=== PATIENT | female | born 1990 ===

== ENCOUNTER 2019-08-10 04:19 | Inpatient (IN) | payer OTHER ==
[2019-08-10] MEDS ORDERED: Nalbuphine 10 MG/1 ML Vial IVPUSH PRN (13:14)
[2019-08-10] MEDS ORDERED: Lidocaine 1% 50 ML MDV INJECT PRN (13:14)
[2019-08-10] MEDS ORDERED: Misoprostol 200 MCG Tab PO PRN (13:14)
[2019-08-10] MEDS ORDERED: Sodium Chloride 0.9% 10 ML Syringe FLUSH PRN (13:14)
[2019-08-10] MEDS ORDERED: Carboprost Tromethamine 250 MCG/1 ML Amp IM PRN (13:14)
[2019-08-10] MEDS ORDERED: Terbutaline 1 MG/ML SDV SUBCUT PRN (13:14)
[2019-08-10] MEDS ORDERED: Sodium Chloride 0.9% 2.5 ML Syringe FLUSH PRN (13:14)
[2019-08-10] MEDS ORDERED: Methylergonovine 0.2 MG/1 ML Amp IM PRN (13:14)
[2019-08-10] MEDS ORDERED: Tranexamic Acid 1,000 MG in Sodium Chloride 0.9% 100 ML IV PRN (13:14)
[2019-08-10] MEDS ORDERED: Water For Irrigation,Sterile 1,000 ML Container IRR PRN (13:14)
[2019-08-10] MEDS ORDERED: Ondansetron 4 MG/2 ML SDV IVPUSH PRN (13:14)
[2019-08-10] MEDS ORDERED: Sodium Chloride 0.9% 10 ML SDV IV PRN (13:14)
[2019-08-10] MEDS ORDERED: Misoprostol 25 MCG (1/4 of 100 MCG) Tab VAG PRN (13:14)
[2019-08-10] MEDS ORDERED: Oxytocin/0.9 % Sodium Chloride 30 UNIT/500 ML BAG IV SCH ×2 (13:15)
[2019-08-10] MEDS ORDERED: Misoprostol 25 MCG (1/4 of 100 MCG) Tab PO ONE ×2 (13:25→13:59)
--- NOTE | 2019-08-10 13:59 | PCM.LDHP ---
L&D History of Present Illness - General Date of Service: 08/10/19 Admit Problem/Dx: Patient Status Order with Admit Dx/Problem 08/10/19 13:15 Patient Status [ADT] Routine Admission Diagnosis/Problem Admission Diagnosis/Problem Source of Information: Patient History Limitations: Reports: No Limitations - History of Present Illness Improves with: Reports: None Worsens with: Reports: None Associated Symptoms: Reports: N - Related Data Allergies/Adverse Reactions: Allergies Allergy/AdvReac Type Severity Reaction Status Date / Time No Known Allergies Allergy Verified 05/26/18 19:30 Home Medications: Home Meds Atenolol [Tenormin] 1 tab PO DAILY 07/25/19 [History] Past Medical History HEENT History: Reports: None Cardiovascular History: Reports: Hypertension Respiratory History: Reports: None Gastrointestinal History: Reports: None Genitourinary History: Reports: None 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 Musculoskeletal History: Reports: None Neurological History: Reports: None Psychiatric History: Reports: None Endocrine/Metabolic History: Reports: None Dermatologic History: Reports: None - Infectious Disease History Infectious Disease History: Reports: None Social & Family History - Family History Family Medical History: Noncontributory H&P Review of Systems - Review of Systems: Review Of Systems: See Below General: Reports: No Symptoms HEENT: Reports: No Symptoms Pulmonary: Reports: No Symptoms Cardiovascular: Reports: No Symptoms Gastrointestinal: Reports: No Symptoms Genitourinary: Reports: No Symptoms Musculoskeletal: Reports: No Symptoms Skin: Reports: No Symptoms Psychiatric: Reports: No Symptoms Neurological: Reports: No Symptoms Hematologic/Lymphatic: Reports: No Symptoms Immunologic: Reports: No Symptoms L&D Exam - Exam Exam: See Below - Vital Signs Weight: 68.492 kg - OB Specific Contraction Intensity: Mild Movement: Active Heart Tones: Present Presentation: Vertex - Jenkins Score Jenkins Score Cervix Position: Anterior Jenkins Score Consistency: Soft Jenkins Score Dilation: Closed Jenkins Score Infant's Station: -3 - Exam General: Alert, Oriented HEENT: PERRLA, Conjunctiva Clear, EACs Clear, EOMI, Hearing Intact, Mucosa Moist & [place], Nares Patent, Normal Nasal Septum, Posterior Pharynx Clear, TMs Clear Neck: Supple, Trachea Midline Lungs: Clear to Auscultation, Normal Respiratory Effort Cardiovascular: Regular Rate, Regular Rhythm GI/Abdominal Exam: Normal Bowel Sounds, Soft, Non-Tender, No Organomegaly, No Distention, No Abnormal Bruit, No Mass, Pelvis Stable Rectal Exam: Normal Exam, Normal Rectal Tone Genitourinary: Normal external exam, Normal bimanual exam, Normal speculum exam Back Exam: Normal Inspection, Full Range of Motion Extremities: Normal Inspection, Normal Range of Motion, Non-Tender, No Pedal Edema, Normal Capillary Refill Skin: Warm, Dry, Intact Neurological: Cranial Nerves Intact, Reflexes Equal Bilateral Psychiatric: Alert, Normal Affect, Normal Mood - Patient Data Lab Results Last 24 hrs: Laboratory Results - last 24 hr 08/10/19 Range/Units 13:40 WBC 9.62 (4.0-11.0) K/uL RBC 3.93 L (4.30-5.90) M/uL Hgb 11.8 L (12.0-16.0) g/dL Hct 35.2 L (36.0-46.0) % MCV 89.6 (80.0-98.0) fL MCH 30.0 (27.0-32.0) pg MCHC 33.5 (31.0-37.0) g/dL RDW Std Deviation 41.7 (28.0-62.0) fl RDW Coeff of Boubacar 13 (11.0-15.0) % Plt Count 226 (150-400) K/uL MPV 10.50 (7.40-12.00) fL Nucleated RBC % 0.0 /100WBC Nucleated RBCs # 0 K/uL Result Diagrams: 08/10/19 13:40 Problem List Initiated/Reviewed/Updated: Yes Orders Last 24hrs: Active Orders 24 hr Category Date Time Status Patient Status [ADT] Routine ADT 08/10/19 13:15 Active Communication Order [RC] ASDIRECTED Care 08/10/19 13:15 Active Communication Order [RC] ASDIRECTED Care 08/10/19 13:15 Active Communication Order [RC] ASDIRECTED Care 08/10/19 13:15 Active Heart Tones [RC] CONTINUOUS Care 08/10/19 13:15 Active Non Stress Test [RC] PER UNIT ROUTINE Care 08/10/19 13:15 Active May Shower [RC] ASDIRECTED Care 08/10/19 13:15 Active Notify Provider [RC] PRN Care 08/10/19 13:15 Active Notify Provider [RC] PRN Care 08/10/19 13:15 Active Notify Provider [RC] PRN Care 08/10/19 13:15 Active Notify Provider [RC] STAT Care 08/10/19 13:15 Active Oxygen Therapy [RC] ASDIRECTED Care 08/10/19 13:15 Active Up ad Chikis [RC] ASDIRECTED Care 08/10/19 13:15 Active Vaginal Exam [RC] PRN Care 08/10/19 13:15 Active Vaginal Exam [RC] PRN Care 08/10/19 13:15 Active Vital Signs [RC] PER UNIT ROUTINE Care 08/10/19 13:15 Active RAPID PLASMA REAGIN, QUANT [REF] Routine Lab 08/10/19 13:40 Received TYPE AND SCREEN [BBK] Routine Lab 08/10/19 13:40 Received Butorphanol [Stadol] Med 08/10/19 13:14 Active 1 mg IVPUSH Q1H PRN Carboprost Tromethamine [Hemabate DS] Med 08/10/19 13:14 Active 250 mcg IM ASDIRECTED PRN Lactated Ringers [Ringers, Lactated] 1,000 ml Med 08/10/19 13:15 Active IV ASDIRECTED Lidocaine 1% [Xylocaine 1%] Med 08/10/19 13:14 Active 50 ml INJECT ONETIME PRN Methylergonovine [Methergine] Med 08/10/19 13:14 Active 0.2 mg IM ASDIRECTED PRN Nalbuphine [Nubain] Med 08/10/19 13:14 Active 10 mg IVPUSH Q1H PRN Ondansetron [Zofran] Med 08/10/19 13:14 Active 4 mg IVPUSH Q4H PRN Oxytocin/0.9 % Sodium Chloride [Oxytocin 30 Unit/500 ML Med 08/10/19 13:15 Active -NS] 30 unit in 500 ml IV TITRATE Oxytocin/0.9 % Sodium Chloride [Oxytocin 30 Unit/500 ML Med 08/10/19 13:15 Active -NS] 30 unit in 500 ml IV TITRATE Sodium Chloride 0.9% [Normal Saline] Med 08/10/19 13:14 Active 10 ml IV ASDIRECTED PRN Sodium Chloride 0.9% [Saline Flush] Med 08/10/19 13:14 Active 10 ml FLUSH ASDIRECTED PRN Sodium Chloride 0.9% [Saline Flush] Med 08/10/19 13:14 Active 2.5 ml FLUSH ASDIRECTED PRN Terbutaline [Brethine] Med 08/10/19 13:14 Active 0.25 mg SUBCUT ASDIRECTED PRN Tranexamic Acid [Cyklokapron] 1,000 mg Med 08/10/19 13:14 Active Sodium Chloride 0.9% [Normal Saline] 100 ml IV ONETIME Water For Irrigation,Sterile [Sterile Water for Med 08/10/19 13:14 Active Irrigation] 1,000 ml IRR ASDIRECTED PRN miSOPROStoL [Cytotec] Med 08/10/19 13:14 Active 200 mcg PO ONETIME PRN miSOPROStoL [Cytotec] Med 08/10/19 13:30 Active 25 mcg PO Q4H miSOPROStoL [Cytotec] Med 08/10/19 13:14 Active 25 mcg VAG ONETIME PRN miSOPROStoL [Cytotec] Med 08/10/19 13:14 Active 25 mcg VAG Q4H PRN Scalp Electrode [WOMSER] Per Unit Routine Oth 08/10/19 13:15 Ordered Medication Administration Instruction [OM.PC] Q3H Oth 08/10/19 13:15 Ordered Peripheral IV Insertion Adult [OM.PC] Routine Oth 08/10/19 13:15 Ordered Resuscitation Status Routine Resus Stat 08/10/19 13:14 Ordered Medication Orders Butorphanol Tartrate (Stadol) 1 mg IVPUSH Q1H PRN PRN Reason: Pain Carboprost Tromethamine (Hemabate Ds) 250 mcg IM ASDIRECTED PRN PRN Reason: Post Hemorrhage Lactated Ringer's (Ringers, Lactated) 1,000 mls @ 150 mls/hr IV ASDIRECTED REBECCA Oxytocin/Sodium Chloride (Oxytocin 30 Unit/500 Ml-Ns) 30 unit in 500 mls @ 999 mls/hr IV TITRATE REBECCA Oxytocin/Sodium Chloride (Oxytocin 30 Unit/500 Ml-Ns) 30 unit in 500 mls @ 2 mls/hr IV TITRATE REBECCA; Protocol Tranexamic Acid 1,000 mg/ (Sodium Chloride) 110 mls @ 660 mls/hr IV ONETIME PRN PRN Reason: Bleeding Lidocaine HCl (Xylocaine 1%) 50 ml INJECT ONETIME PRN PRN Reason: Laceration repair Methylergonovine Maleate (Methergine) 0.2 mg IM ASDIRECTED PRN PRN Reason: Post Hemorrhage Misoprostol (Cytotec) 200 mcg PO ONETIME PRN PRN Reason: Post Hemorrhage Misoprostol (Cytotec) 25 mcg VAG ONETIME PRN PRN Reason: Cervical Ripening Misoprostol (Cytotec) 25 mcg VAG Q4H PRN PRN Reason: Cervical Ripening Misoprostol (Cytotec) 25 mcg PO Q4H REBECCA Nalbuphine HCl (Nubain) 10 mg IVPUSH Q1H PRN PRN Reason: Pain (severe 7-10) Ondansetron HCl (Zofran) 4 mg IVPUSH Q4H PRN PRN Reason: Nausea/Vomiting Sodium Chloride (Saline Flush) 10 ml FLUSH ASDIRECTED PRN PRN Reason: Keep Vein Open Sodium Chloride (Saline Flush) 2.5 ml FLUSH ASDIRECTED PRN PRN Reason: Keep Vein Open Sodium Chloride (Normal Saline) 10 ml IV ASDIRECTED PRN PRN Reason: IV Use Sterile Water (Sterile Water For Irrigation) 1,000 ml IRR ASDIRECTED PRN PRN Reason: delivery Terbutaline Sulfate (Brethine) 0.25 mg SUBCUT ASDIRECTED PRN PRN Reason: Tacysystole Assessment/Plan Comment:: Term admitted for elective induction.
[2019-08-10] MEDS: Lactated Ringers 1,000 ML IV SCH (17:45)
[2019-08-10] MEDS: Misoprostol 25 MCG (1/4 of 100 MCG) Tab VAG PRN ×2 (18:27→22:33)
[2019-08-10] MEDS: Misoprostol 25 MCG (1/4 of 100 MCG) Tab PO SCH ×2 (18:28→22:33)
[2019-08-10] MEDS: Butorphanol 1 MG/ML SDV IVPUSH PRN (22:38)
[2019-08-11] MEDS: Butorphanol 1 MG/ML SDV IVPUSH PRN (02:50)
[2019-08-11] MEDS ORDERED: fentaNYL 100 MCG/2 ML SDV ONE (03:24)
[2019-08-11] MEDS ORDERED: Ropivacaine HCl/PF 100 ML ONE (03:25)
[2019-08-11] MEDS ORDERED: Ropivacaine 0.2% PF 2 MG/ML 20 ML SDV ONE (03:25)
[2019-08-11] MEDS: Lactated Ringers 1,000 ML IV SCH (03:55)
[2019-08-11] MEDS: Misoprostol 25 MCG (1/4 of 100 MCG) Tab PO SCH (03:57)
[2019-08-11] MEDS ORDERED: Bupivacaine 0.5% 30 ML SDV ONE (04:03)
[2019-08-11] MEDS ORDERED: oxyCODONE 5 MG Tab PO PRN (04:27)
[2019-08-11] MEDS ORDERED: Ibuprofen 400 MG Tab PO PRN (04:27)
[2019-08-11] MEDS ORDERED: Lanolin 100% Cream 7 GM Tube TOP PRN (04:27)
[2019-08-11] MEDS ORDERED: Docusate Sodium 100 MG Cap PO PRN (04:27)
[2019-08-11] MEDS ORDERED: Witch Hazel Medicated Pads 40/Jar TOP PRN (04:27)
[2019-08-11] MEDS ORDERED: Bisacodyl 10 MG Supp RECTAL PRN (04:27)
[2019-08-11] MEDS ORDERED: Benzocaine/Menthol 20%-0.5% Spray 78 GM Cannister TOP PRN (04:27)
[2019-08-11] MEDS ORDERED: Acetaminophen 500 MG Tab PO PRN ×2 (04:27)
--- NOTE | 2019-08-11 04:29 | PCM.PREANE ---
Preanesthetic Assessment - Procedure Proposed Procedure: Labor epidural - Anesthesia/Transfusion/Family Hx Anesthesia History: Prior Anesthesia Without Reaction Family History of Anesthesia Reaction: No Transfusion History: No Prior Transfusion(s) Intubation History: Unknown - Review of Systems General: No Symptoms Pulmonary: No Symptoms Cardiovascular: No Symptoms Gastrointestinal: No Symptoms Neurological: No Symptoms Other: Reports: None - Physical Assessment NPO Status Date: 08/11/19 NPO Status Time: 04:26 (liquids) Vital Signs: 140/73 100 20 SaO2 99% Active labor. 3-4cm last check. Height: 1.63 m Weight: 68.492 kg ASA Class: 2 Mental Status: Alert & Oriented x3 Airway Class: Mallampati = 1 Dentition: Reports: Normal Dentition Thyro-Mental Finger Breadths: 3 Mouth Opening Finger Breadths: 3 ROM/Head Extension: Full Lungs: Clear to Auscultation Cardiovascular: Regular Rate (Acceptable for VAZQUEZ. Discussed. Permit signed.) - Lab Values: Laboratory Last Values WBC 9.62 K/uL (4.0-11.0) 08/10/19 13:40 RBC 3.93 M/uL (4.30-5.90) L 08/10/19 13:40 Hgb 11.8 g/dL (12.0-16.0) L 08/10/19 13:40 Hct 35.2 % (36.0-46.0) L 08/10/19 13:40 MCV 89.6 fL (80.0-98.0) 08/10/19 13:40 MCH 30.0 pg (27.0-32.0) 08/10/19 13:40 MCHC 33.5 g/dL (31.0-37.0) 08/10/19 13:40 RDW Std Deviation 41.7 fl (28.0-62.0) 08/10/19 13:40 RDW Coeff of Boubacar 13 % (11.0-15.0) 08/10/19 13:40 Plt Count 226 K/uL (150-400) 08/10/19 13:40 MPV 10.50 fL (7.40-12.00) 08/10/19 13:40 Nucleated RBC % 0.0 /100WBC 08/10/19 13:40 Nucleated RBCs # 0 K/uL 08/10/19 13:40 Blood Type B POSITIVE 08/10/19 13:40 Antibody Screen NEGATIVE 08/10/19 13:40 - Allergies Allergies/Adverse Reactions: Allergies Allergy/AdvReac Type Severity Reaction Status Date / Time No Known Allergies Allergy Verified 05/26/18 19:30 PreAnesthesia Questionnaire HEENT History: Reports: None Cardiovascular History: Reports: Hypertension Other Cardiovascular History: Chronic since 2016 Respiratory History: Reports: None Gastrointestinal History: Reports: None Genitourinary History: Reports: None 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 History: Reports: None Neurological History: Reports: None Psychiatric History: Reports: None Endocrine/Metabolic History: Reports: None Dermatologic History: Reports: None - Infectious Disease History Infectious Disease History: Reports: Chicken Pox - Past Surgical History HEENT Surgical History: Reports: Oral Surgery Other HEENT Surgeries/Procedures: 2012: wisdom teeth Cardiovascular Surgical History: Reports: None - SUBSTANCE USE Smoking Status *Q: Never Smoker Second Hand Smoke Exposure: No Recreational Drug Use History: No - HOME MEDS Home Medications: Home Meds Atenolol [Tenormin] 1 tab PO DAILY 07/25/19 [History] - CURRENT (IN HOUSE) MEDS Current Meds: Current Medications Butorphanol Tartrate (Stadol) 1 mg IVPUSH Q1H PRN PRN Reason: Pain Last Admin: 08/11/19 02:50 Dose: 1 mg Carboprost Tromethamine (Hemabate Ds) 250 mcg IM ASDIRECTED PRN PRN Reason: Post Hemorrhage Lactated Ringer's (Ringers, Lactated) 1,000 mls @ 150 mls/hr IV ASDIRECTED REBECCA Last Admin: 08/11/19 03:55 Dose: 150 mls/hr Oxytocin/Sodium Chloride (Oxytocin 30 Unit/500 Ml-Ns) 30 unit in 500 mls @ 999 mls/hr IV TITRATE REBECCA Last Admin: 08/11/19 04:21 Dose: 999 mls/hr Oxytocin/Sodium Chloride (Oxytocin 30 Unit/500 Ml-Ns) 30 unit in 500 mls @ 2 mls/hr IV TITRATE REBECCA; Protocol Tranexamic Acid 1,000 mg/ (Sodium Chloride) 110 mls @ 660 mls/hr IV ONETIME PRN PRN Reason: Bleeding Lidocaine HCl (Xylocaine 1%) 50 ml INJECT ONETIME PRN PRN Reason: Laceration repair Methylergonovine Maleate (Methergine) 0.2 mg IM ASDIRECTED PRN PRN Reason: Post Hemorrhage Misoprostol (Cytotec) 200 mcg PO ONETIME PRN PRN Reason: Post Hemorrhage Misoprostol (Cytotec) 25 mcg VAG ONETIME PRN PRN Reason: Cervical Ripening Last Admin: 08/10/19 14:03 Dose: 25 mcg Misoprostol (Cytotec) 25 mcg VAG Q4H PRN PRN Reason: Cervical Ripening Last Admin: 08/10/19 22:33 Dose: 25 mcg Misoprostol (Cytotec) 25 mcg PO Q4H REBECCA Last Admin: 08/11/19 03:57 Dose: Not Given Nalbuphine HCl (Nubain) 10 mg IVPUSH Q1H PRN PRN Reason: Pain (severe 7-10) Ondansetron HCl (Zofran) 4 mg IVPUSH Q4H PRN PRN Reason: Nausea/Vomiting Sodium Chloride (Saline Flush) 10 ml FLUSH ASDIRECTED PRN PRN Reason: Keep Vein Open Sodium Chloride (Saline Flush) 2.5 ml FLUSH ASDIRECTED PRN PRN Reason: Keep Vein Open Sodium Chloride (Normal Saline) 10 ml IV ASDIRECTED PRN PRN Reason: IV Use Sterile Water (Sterile Water For Irrigation) 1,000 ml IRR ASDIRECTED PRN PRN Reason: delivery Terbutaline Sulfate (Brethine) 0.25 mg SUBCUT ASDIRECTED PRN PRN Reason: Tacysystole Discontinued Medications Bupivacaine HCl (Marcaine 0.5%) Confirm Administered Dose 30 ml .ROUTE .STK-MED ONE Stop: 08/11/19 04:04 Fentanyl (Sublimaze) Confirm Administered Dose 100 mcg .ROUTE .STK-MED ONE Stop: 08/11/19 03:25 Ropivacaine (Naropin 0.2%) Confirm Administered Dose 100 mls @ as directed .ROUTE .STK-MED ONE Stop: 08/11/19 03:26 Misoprostol (Cytotec) 25 mcg PO ONETIME ONE Stop: 08/10/19 13:26 Misoprostol (Cytotec) 25 mcg PO ONETIME ONE Stop: 08/10/19 14:00 Last Admin: 08/10/19 14:33 Dose: 25 mcg Ropivacaine (Naropin 0.2%) Confirm Administered Dose 20 ml .ROUTE .[facility] ONE Stop: 08/11/19 03:26
--- NOTE | 2019-08-11 04:44 | PCM.PRNOTE ---
- Free Text/Narrative Note: Requested VAZQUEZ. , active labor on Pitocin. Discussed, ? answered, permit signed. Fluid bolus in. 03:32 Prep with Chloroprep 03:35 Skin local 4 ml 1% Lidocaine @ L3-4 03:37 Space ID'd via a SRINIVASA with air/saline. Reconfirmed with saline. 03:38 Cath to 8 cm without issues. 03:40 Test dose with 4ml 1.5% lido with 1:200k epi added. Negative aspiration, negative test. 03:47-54 Bolus with 8ml 0.2% Naropin + 100mcg Fentanyl added. 03:58 Legs heavy, contractions still noticeable. 04:00 Pain/pressure present, checked complete. Very uncomfortable 04:02 Marcaine 0.5% 4ml given, negative aspiration. 04:05 Pressure/discomfort <. Delivered 04:19 Tolerated well.
--- NOTE | 2019-08-11 10:00 | OR ---
SURGEON: Carlitos Soria MD DATE OF PROCEDURE: Ms. King is a 28-year-old. She is para 2-0-0-2, both of them by normal spontaneous vaginal delivery. She is followed in our practice, and she had no complication. Her GBS status was negative. She is admitted for elective induction. She is 39 plus weeks. She is induced with Cytotec. She responded to that very well initially slowly. At the time of the admission, she was 1 to 2 cm, 50 vertex, and -3 and she progressed slowly to 4 cm and once she got into 4, she rather entered the active phase and progressed rapidly. At 6 cm, she had epidural anesthesia for labor analgesia, and she became complete, and she was able to accomplish normal spontaneous vaginal delivery over intact perineum. There was no vaginal or labial laceration. The placenta delivered spontaneous, complete, and intact without any problem. There was 1 nuchal cord and fetus, cried immediately. scores reported to be 8 and 9. The weight is not available. Estimated blood loss was 250 to 300 mL. heart rate was category 1 through the entire process of labor. There was no complication in the labor and the delivery process. MYKEL / TERESSA /[id number]
--- NOTE | 2019-08-11 12:57 | PCM48HPAN ---
Post Anesthesia Note - EVALUATION WITHIN 48HRS OF ANESTHETIC Vital Signs in Normal Range: Yes Patient Participated in Evaluation: Yes Respiratory Function Stable: Yes Airway Patent: Yes Cardiovascular Function Stable: Yes Hydration Status Stable: Yes Pain Control Satisfactory: Yes Nausea and Vomiting Control Satisfactory: Yes Mental Status Recovered: Yes Vital Signs: Stable - COMMENTS/OBSERVATIONS Free Text/Narrative:: Doing well. No problems at present.
[2019-08-11] MEDS: Ibuprofen 800 MG Tab PO PRN (14:52)
[2019-08-12] MEDS: Ibuprofen 800 MG Tab PO PRN ×2 (00:30→09:36)
--- NOTE | 2019-08-12 12:27 | PCM.DCSUM1 ---
Discharge Summary - Hospital Course Free Text/Narrative:: Discharge home with . Follow up in 6 weeks Diagnosis: Stroke: No Modified [place] Scale: No Symptoms at All Modified Jose F Scale Score: 0 - Discharge Data Discharge Date: 08/12/19 Discharge Disposition: Home, Self-Care 01 Condition: Good - Referral to Home Health Primary Care Physician: Carlitos Soria MD - Patient Instructions Diet: Usual Diet as Tolerated Activity: As Tolerated, No Strenuous Activities, Rest and Relax Today Driving: May Drive Today Showering/Bathing: May Shower Notify Provider of: Fever, Increased Pain, Swelling and Redness, Nausea and/or Vomiting - Discharge Plan *PRESCRIPTION DRUG MONITORING PROGRAM REVIEWED*: Not Applicable *COPY OF PRESCRIPTION DRUG MONITORING REPORT IN PATIENT MANDEEP: Not Applicable Home Medications: Home Meds Atenolol [Tenormin] 1 tab PO DAILY 07/25/19 [History] Oxygen Therapy Mode: Room Air Patient Handouts: and Inducing , Baby Blues, Vaginal Delivery, Care After Referrals: [facility] [Outside] Carlitos Soria MD [Primary Care Provider] - 09/23/19 10:45 am - Discharge Summary/Plan Comment DC Time >30 min.: Yes - General Info Date of Service: 08/12/19 Admission Dx/Problem (Free Text: Patient Status Order with Admit Dx/Problem 08/10/19 13:15 Patient Status [ADT] Routine Admission Diagnosis/Problem Admission Diagnosis/Problem Functional Status: Reports: Pain Controlled, Tolerating Diet, Ambulating, Urinating - Review of Systems General: Reports: No Symptoms HEENT: Reports: No Symptoms Pulmonary: Reports: No Symptoms Cardiovascular: Reports: No Symptoms Gastrointestinal: Reports: No Symptoms Genitourinary: Reports: No Symptoms Musculoskeletal: Reports: No Symptoms Skin: Reports: No Symptoms Neurological: Reports: No Symptoms Psychiatric: Reports: No Symptoms - Patient Data Vitals - Most Recent: Last Vital Signs Temp 35.9 C 08/12/19 08:00 Pulse 71 08/12/19 08:00 Resp 16 08/12/19 08:00 BP 122/83 08/12/19 08:00 Pulse Ox 98 08/12/19 08:00 Weight - Most Recent: 68.492 kg Lab Results - Last 24 hrs: Laboratory Results - last 24 hr 08/12/19 Range/Units 05:23 Hgb 10.7 L (12.0-16.0) g/dL Hct 32.0 L (36.0-46.0) % Med Orders - Current: Current Medications Acetaminophen (Tylenol Extra Strength) 500 mg PO Q4H PRN PRN Reason: Pain Acetaminophen (Tylenol Extra Strength) 1,000 mg PO Q4H PRN PRN Reason: Pain Benzocaine/Menthol (Dermoplast Pain Relief 20%-0.5% [place]) 78 gm TOP ASDIRECTED PRN PRN Reason: Perineal Comfort Measure Bisacodyl (Dulcolax) 10 mg RECTAL ONETIME PRN PRN Reason: Constipation Carboprost Tromethamine (Hemabate Ds) 250 mcg IM ASDIRECTED PRN PRN Reason: Post Hemorrhage Docusate Sodium (Colace) 100 mg PO BID PRN PRN Reason: Constipation Last Admin: 08/12/19 09:38 Dose: 100 mg Emollient Ointment (Lansinoh Hpa) 0 gm TOP ASDIRECTED PRN PRN Reason: Sore Nipples Tranexamic Acid 1,000 mg/ (Sodium Chloride) 110 mls @ 660 mls/hr IV ONETIME PRN PRN Reason: Bleeding Ibuprofen (Motrin) 400 mg PO Q4H PRN PRN Reason: Pain Ibuprofen (Motrin) 800 mg PO Q6H PRN PRN Reason: Pain Last Admin: 08/12/19 09:36 Dose: 800 mg Methylergonovine Maleate (Methergine) 0.2 mg IM ASDIRECTED PRN PRN Reason: Post Hemorrhage Misoprostol (Cytotec) 200 mcg PO ONETIME PRN PRN Reason: Post Hemorrhage Ondansetron HCl (Zofran) 4 mg IVPUSH Q4H PRN PRN Reason: Nausea/Vomiting Oxycodone HCl (Oxycodone) 5 mg PO Q2H PRN PRN Reason: Pain Witch Cristy (Tucks) 1 pad TOP ASDIRECTED PRN PRN Reason: comfort care Discontinued Medications Bupivacaine HCl (Marcaine 0.5%) Confirm Administered Dose 30 ml .ROUTE .STK-MED ONE Stop: 08/11/19 04:04 Butorphanol Tartrate (Stadol) 1 mg IVPUSH Q1H PRN PRN Reason: Pain Last Admin: 08/11/19 02:50 Dose: 1 mg Fentanyl (Sublimaze) Confirm Administered Dose 100 mcg .ROUTE .[employer]-MED ONE Stop: 08/11/19 03:25 Lactated Ringer's (Ringers, Lactated) 1,000 mls @ 150 mls/hr IV ASDIRECTED REBECCA Last Admin: 08/11/19 03:55 Dose: 150 mls/hr Oxytocin/Sodium Chloride (Oxytocin 30 Unit/500 Ml-Ns) 30 unit in 500 mls @ 999 mls/hr IV TITRATE REBECCA Last Admin: 08/11/19 04:21 Dose: 999 mls/hr Oxytocin/Sodium Chloride (Oxytocin 30 Unit/500 Ml-Ns) 30 unit in 500 mls @ 2 mls/hr IV TITRATE REBECCA; Protocol Ropivacaine (Naropin 0.2%) Confirm Administered Dose 100 mls @ as directed .ROUTE .[employer] ONE Stop: 08/11/19 03:26 Lidocaine HCl (Xylocaine 1%) 50 ml INJECT ONETIME PRN PRN Reason: Laceration repair Misoprostol (Cytotec) 25 mcg VAG ONETIME PRN PRN Reason: Cervical Ripening Last Admin: 08/10/19 14:03 Dose: 25 mcg Misoprostol (Cytotec) 25 mcg VAG Q4H PRN PRN Reason: Cervical Ripening Last Admin: 08/10/19 22:33 Dose: 25 mcg Misoprostol (Cytotec) 25 mcg PO ONETIME ONE Stop: 08/10/19 13:26 Misoprostol (Cytotec) 25 mcg PO Q4H REBECCA Last Admin: 08/11/19 03:57 Dose: Not Given Misoprostol (Cytotec) 25 mcg PO ONETIME ONE Stop: 08/10/19 14:00 Last Admin: 08/10/19 14:33 Dose: 25 mcg Nalbuphine HCl (Nubain) 10 mg IVPUSH Q1H PRN PRN Reason: Pain (severe 7-10) Ropivacaine (Naropin 0.2%) Confirm Administered Dose 20 ml .ROUTE .[employer]-MED ONE Stop: 08/11/19 03:26 Sodium Chloride (Saline Flush) 10 ml FLUSH ASDIRECTED PRN PRN Reason: Keep Vein Open Sodium Chloride (Saline Flush) 2.5 ml FLUSH ASDIRECTED PRN PRN Reason: Keep Vein Open Sodium Chloride (Normal Saline) 10 ml IV ASDIRECTED PRN PRN Reason: IV Use Sterile Water (Sterile Water For Irrigation) 1,000 ml IRR ASDIRECTED PRN PRN Reason: delivery Terbutaline Sulfate (Brethine) 0.25 mg SUBCUT ASDIRECTED PRN PRN Reason: Tacysystole - Exam General: Reports: Alert, Oriented, Cooperative, No Acute Distress Lungs: Reports: Normal Respiratory Effort GI/Abdominal Exam: Soft, Non-Tender (Female) Exam: Deferred, Vaginal Bleeding Rectal (Female) Exam: Deferred Back Exam: Reports: Full Range of Motion Extremities: Normal Range of Motion Skin: Reports: Warm, Dry, Intact Neurological: Reports: No New Focal Deficit, Normal Speech, Normal Tone, Strength Equal Bilateral, Sensation Intact Psy/Mental Status: Reports: Alert, Normal Affect, Normal Mood
== END 2019-08-12 13:35 | disposition home or self-care (01) | DRG 806 ==
LOC: MW.OB 04:19 → OBSVTOIN 08-11 04:19 → MW.OB 08-11 05:50
PROVIDERS: ADMIT Obstetrics & Gynecology; ATTEND Obstetrics & Gynecology
PROC: 10E0XZZ Delivery of Products of Conception, External Approach (ICD-10-PCS; principal; 2019-08-11)
PROC: 3E0P7VZ Introduction of Hormone into Female Reproductive, Via Natural or Artificial Opening (ICD-10-PCS; 2019-08-11)
PROC: 3E0R3BZ Introduction of Anesthetic Agent into Spinal Canal, Percutaneous Approach (ICD-10-PCS; 2019-08-11)
DX: O69.81X0 Labor and delivery complicated by cord around neck, without compression, not applicable or unspecified (principal); O10.92 Unspecified pre-existing hypertension complicating childbirth; Z37.0 Single live birth; Z3A.39 39 weeks gestation of pregnancy; Z79.899 Other long term (current) drug therapy
CPT/HCPCS: 01967; 36415; 59025; 59409; 85014; 85018; 85027; 86593; 86850; 86900; 86901; A9270-GY; J0595; J2590; J2795; J3010; J3490; J7120

== ENCOUNTER 2019-10-04 13:19 | Emergency (ER) | payer OTHER ==
--- NOTE | 2019-10-04 14:21 | EDM.PDOC ---
ED HPI GENERAL MEDICAL PROBLEM - General Chief Complaint: General Stated Complaint: FLU SYMPTOMS Time Seen by Provider: 10/04/19 13:50 Source of Information: Reports: Patient History Limitations: Reports: No Limitations - History of Present Illness INITIAL COMMENTS - FREE TEXT/NARRATIVE: HISTORY AND PHYSICAL: History of present illness: Patient is a 29-year-old female who presents to the emergency room with complaints of subjective fever, dizziness, generally feeling unwell and left breast pain. She states she woke up from a nap this morning and noticed some pain to her left breast but did not see any redness or swelling. She did have a vaginal delivery approximately a month ago and states that she has been doing well since. She is currently breast-feeding and routinely feeds without any difficulty. Patient denies any neck pain/stiffness, headache, change in vision , syncope or near syncope. Denies any chest pain, back pain, shortness of breath or cough. Denies any GI or symptoms. Patient has been eating and drinking appropriately. Review of systems: As per history of present illness and below otherwise all systems reviewed and negative. Past medical history: As per history of present illness and as reviewed below otherwise noncontributory. Surgical history: As per history of present illness and as reviewed below otherwise noncontributory. Social history: See social history for further information Family history: As per history of present illness and as reviewed below otherwise noncontributory. Physical exam: General: Well-developed and well-nourished 29-year-old female. Alert and oriented. Nontoxic-appearing and in no acute distress. HEENT: Atraumatic, normocephalic, pupils equal and reactive bilaterally, negative for conjunctival pallor or scleral icterus, mucous membranes moist, TMs normal bilaterally, throat clear, neck supple, nontender, trachea midline. No drooling or trismus noted. No meningeal signs. No hot potato voice noted. Lungs: Clear to auscultation, breath sounds equal bilaterally, chest wall nontender. Patient does have erythema to the left breast at the 10 to 2 o' clock position. No abscess or mass palpated. Tender to touch. Heart: S1S2, regular rate and rhythm without overt murmur Abdomen: Soft, nondistended, nontender. Negative for masses or hepatosplenomegaly. Negative for costovertebral tenderness. Skin: Intact, warm, dry. No lesions or rashes noted. Extremities: Atraumatic, moves all extremities per self without difficulty or deficits, negative for cords or calf pain. Neurovascular unremarkable. Neuro: Awake, alert, oriented. Cranial nerves II through XII unremarkable. Cerebellum unremarkable. Motor and sensory unremarkable throughout. Exam nonfocal. Notes: Patient does have mastitis of the left breast. Influenza swab is negative.I did offer to give her some IV fluids along with some basic lab work which she declines at this time. She states she will follow-up with Dr. Soria. Supportive care measures were reviewed and discussed. Voices understanding and is agreeable to plan of care. Denies any further questions or concerns at this time. Diagnostics: Influenza Therapeutics: Declines Prescription: Keflex Impression: Mastitis, left Plan: 1. Make sure you are continuing to breast-feed and promote effective milk removal, express both side routinely. You may continue breast-feeding, even on the affected side as this will not harm the infant. The antibiotic is safe in breast feeding; take as directed. 2. Please increase your fluid intake, try warm and/or cold compresses, and have bed rest. 3. You can alternate Tylenol and ibuprofen for pain management. 4. Follow up with Dr Soria for re-evalution as we discussed. Return to the ED as needed and as discussed. Definitive disposition and diagnosis as appropriate pending reevaluation and review of above. left breast Pain Score (Numeric/FACES): 8 - Related Data Allergies Allergy/AdvReac Type Severity Reaction Status Date / Time No Known Allergies Allergy Verified 10/04/19 13:43 Home Meds: Home Meds Atenolol [Tenormin] 50 mg PO DAILY 07/25/19 [History] Control 10/04/19 [History] cephALEXin [Keflex] 500 mg PO TID 7 Days #21 cap 10/04/19 [Rx] Past Medical History HEENT History: Reports: None Cardiovascular History: Reports: Hypertension Other Cardiovascular History: Chronic since 2017 Respiratory History: Reports: None Gastrointestinal History: Reports: None Genitourinary History: Reports: None [employer] History: Reports: Musculoskeletal History: Reports: None Neurological History: Reports: None Psychiatric History: Reports: None Endocrine/Metabolic History: Reports: None Dermatologic History: Reports: None - Infectious Disease History Infectious Disease History: Reports: Chicken Pox - Past Surgical History HEENT Surgical History: Reports: Oral Surgery Other HEENT Surgeries/Procedures: 2012: wisdom teeth Cardiovascular Surgical History: Reports: None Social & Family History - Family History Family Medical History: Noncontributory - Tobacco Use Smoking Status *Q: Never Smoker - Caffeine Use Caffeine Use: Reports: Coffee - Recreational Drug Use Recreational Drug Use: No ED ROS GENERAL - Review of Systems Review Of Systems: Comprehensive ROS is negative, except as noted in HPI. ED EXAM, GENERAL - Physical Exam Exam: See Below (See dictation) Course - Vital Signs Last Recorded V/S: Last Vital Signs Temp 100.3 F 10/04/19 14:48 Pulse 94 10/04/19 14:48 Resp 16 10/04/19 14:48 BP 102/57 L 10/04/19 14:48 Pulse Ox 96 10/04/19 14:48 Departure - Departure Time of Disposition: 14:21 Disposition: Home, Self-Care 01 Clinical Impression: Mastitis - Discharge Information Prescriptions: cephALEXin [Keflex] 500 mg PO TID 7 Days #21 cap Instructions: Mastitis, [id number] Referrals: Ihsan Hernadez MD [Primary Care Provider] - Forms: ED Department Discharge Additional Instructions: The following information is given to patients seen in the emergency department who are being discharged to home. This information is to outline your options for follow-up care. We provide all patients seen in our emergency department with a follow-up referral. The need for follow-up, as well as the timing and circumstances, are variable depending upon the specifics of your emergency department visit. If you don't have a primary care physician on staff, we will provide you with a referral. We always advise you to contact your personal physician following an emergency department visit to inform them of the circumstance of the visit and for follow-up with them and/or the need for any referrals to a consulting specialist. The emergency department will also refer you to a specialist when appropriate. This referral assures that you have the opportunity for follow-up care with a specialist. All of these measure are taken in an effort to provide you with optimal care, which includes your follow-up. Under all circumstances we always encourage you to contact your private physician who remains a resource for coordinating your care. When calling for follow-up care, please make the office aware that this follow-up is from your recent emergency room visit. If for any reason you are refused follow-up, please contact the [facility] Emergency Department at and asked to speak to the emergency department charge nurse. [facility] [address] [place] [address] [facility] [address] [place] [id number] 1. Make sure you are continuing to breast-feed and promote effective milk removal, express both side routinely. You may continue breast-feeding, even on the affected side as this will not harm the infant. The antibiotic is safe in breast feeding; take as directed. 2. Please increase your fluid intake, try warm and/or cold compresses, and have bed rest. 3. You can alternate Tylenol and ibuprofen for pain management. 4. Follow up with Dr Soria for re-evaluation as we discussed. Return to the ED as needed and as discussed. Sepsis Event Note - Evaluation Sepsis Screening Result: No Definite Risk - Focused Exam Vital Signs: Vital Signs Temp Pulse Resp BP Pulse Ox 10/04/19 14:48 100.3 F 94 16 102/57 L 96 10/04/19 13:40 100.8 F H 98 16 109/68 94 L Date Exam was Performed: 10/04/19 Time Exam was Performed: 20:58
== END 2019-10-04 14:51 | disposition home or self-care (01) ==
LOC: MW.ED 13:19
DX: N61.0 Mastitis without abscess (principal)
CPT/HCPCS: 87804; 99284